=== PATIENT | male | born 1985 | race Caucasian/White ===

== ENCOUNTER 2016-06-06 14:30 | Emergency (ER) | payer MEDICARE ==
[~2016-06-06 14:30] MED LIST: NAPR375T3 PO
[2016-06-06 15:18] LABS: BASO % 1 % (0-3); EOS % 2 % (0-3); HEMATOCRIT 46.7 % (39.0-53.0); HEMOGLOBIN 15.9 g/dL (13.0-17.5); LYMPH # 1.2 x10^3/uL (1.0-4.8); LYMPH % 16 % (24-48); MEAN CORPUSCULAR HEMOGLOBIN 30 pg (25-35); MEAN CORPUSCULAR HGB CONC 34 g/dL (31-37); MEAN CORPUSCULAR VOLUME 89 fL (79-100); MONO % 6 % (0-9); NEUT % 76 % (31-73); PLATELET COUNT 194 x10^3/uL (140-400); RED BLOOD COUNT 5.25 x10^6/uL (4.30-5.70); RED CELL DISTRIBUTION WIDTH 14.6 % (11.5-14.5); WHITE BLOOD COUNT 7.8 x10^3/uL (4.0-11.0)
[2016-06-06 15:31] LABS: CALCIUM 9.6 mg/dL (8.5-10.1); CREATININE 1.1 mg/dL (0.7-1.3); GFR 78.1; POTASSIUM 3.7 mmol/L (3.5-5.1)
[2016-06-06 15:36] LABS: ALBUMIN 4.4 g/dL (3.4-5.0); ALBUMIN/GLOBULIN RATIO 1.2 (1.0-1.7); TOTAL BILIRUBIN 0.5 mg/dL (0.2-1.0)
--- NOTE | 2016-06-06 15:49 | PHYS DOC ---
Past Medical History Past Medical History: No Pertinent History Past Surgical History: Tonsillectomy Alcohol Use: None Drug Use: None Adult General Chief Complaint Chief Complaint: ABDOMINAL PAIN HPI HPI Patient is a 30 year old male who comes to the ED complaining of upper abdominal pain, epigastric and right upper quadrant, that has bothered him intermittently for 4 days since Saturday, and has been getting a little bit worse each day. Today he had a couple of episodes where he felt lightheaded and he felt like he might pass out. He has been drinking Sprite today, he feels that if he eats anything it might make his pain worse. He's had some nausea, no vomiting, no diarrhea or constipation. He felt a little bloated, feels like he needs to burp. He's never had this before. He is in good general health. He's had no blood in his stools, no black tarry stools. He has not had abdominal surgery. PCP none Review of Systems Review of Systems Constitutional: Denies fever or chills [] Eyes: Denies change in visual acuity, redness, or eye pain [] HENT: Denies nasal congestion or sore throat [] Respiratory: Denies cough or shortness of breath [] Cardiovascular: Denies chest pain GI: As in history of present illness : Denies dysuria or hematuria [] Musculoskeletal: Denies back pain or joint pain [] Integument: Denies rash or skin lesions [] Neurologic: Denies headache, focal weakness or sensory changes [] Allergies Allergies Allergies Coded Allergies Type Severity Reaction Last Updated Verified fentanyl Allergy Severe STOP BREATHING 06/06/16 Yes Physical Exam Physical Exam Constitutional: Well developed, well nourished, no acute distress, non-toxic appearance. Alert, mentating normally, no acute distress, drinking Sprite out of a bottle. HENT: Normocephalic, atraumatic, bilateral external ears normal, nose normal. [ ] Eyes: conjunctiva normal, no discharge. [] Neck: Normal range of motion, no stridor. [] Cardiovascular:Heart rate regular rhythm, no murmur [] Lungs & Thorax: Bilateral breath sounds clear to auscultation [] Abdomen: Bowel sounds normal, soft, nondistended, no masses, no pulsatile masses. Mild tenderness to palpation in the epigastrium, no significant right upper quadrant tenderness, no Tamez's, no rebound or guarding. Skin: Warm, dry, no erythema, no rash. [] Extremities: No tenderness, no cyanosis, no clubbing, ROM intact, no edema. [] Neurologic: Alert and oriented X 3, normal motor function, normal sensory function, no focal deficits noted. [] ] Current Patient Data Vital Signs Vital Signs Date Time Temp Pulse Resp B/P Pulse Ox O2 Delivery O2 Flow Rate FiO2 06/06/16 16:00 68 21 123/69 95 Room Air 06/06/16 14:32 98.1 98.1 Lab Values Laboratory Tests Test 06/06/16 15:05 White Blood Count 7.8x10^3/uL (4.0-11.0) Red Blood Count 5.25x10^6/uL (4.30-5.70) Hemoglobin 15.9g/dL (13.0-17.5) Hematocrit 46.7% (39.0-53.0) Mean Corpuscular Volume 89fL (79-100) Mean Corpuscular Hemoglobin 30pg (25-35) Mean Corpuscular Hemoglobin Concent 34g/dL (31-37) Red Cell Distribution Width 14.6% (11.5-14.5) H Platelet Count 194x10^3/uL (140-400) Neutrophils (%) (Auto) 76% (31-73) H Lymphocytes (%) (Auto) 16% (24-48) L Monocytes (%) (Auto) 6% (0-9) Eosinophils (%) (Auto) 2% (0-3) Basophils (%) (Auto) 1% (0-3) Neutrophils # (Auto) 5.9x10^3uL (1.8-7.7) Lymphocytes # (Auto) 1.2x10^3/uL (1.0-4.8) Monocytes # (Auto) 0.5x10^3/uL (0.0-1.1) Eosinophils # (Auto) 0.1x10^3/uL (0.0-0.7) Basophils # (Auto) 0.0x10^3/uL (0.0-0.2) Sodium Level 142mmol/L (136-145) Potassium Level 3.7mmol/L (3.5-5.1) Chloride Level 104mmol/L (98-107) Carbon Dioxide Level 28mmol/L (21-32) Anion Gap 10 (6-14) Blood Urea Nitrogen 14mg/dL (8-26) Creatinine 1.1mg/dL (0.7-1.3) Estimated GFR (Cockcroft-Gault) 78.1 BUN/Creatinine Ratio 13 (6-20) Glucose Level 139mg/dL (70-99) H Calcium Level 9.6mg/dL (8.5-10.1) Total Bilirubin 0.5mg/dL (0.2-1.0) Aspartate Amino Transferase (AST) 20U/L (15-37) Alanine Aminotransferase (ALT) 33U/L (16-63) Alkaline Phosphatase 91U/L (46-116) Total Protein 8.0g/dL (6.4-8.2) Albumin 4.4g/dL (3.4-5.0) Albumin/Globulin Ratio 1.2 (1.0-1.7) Lipase 86U/L (73-393) Laboratory Tests 06/06/16 15:05 Laboratory Tests 06/06/16 15:05 EKG EKG [] Radiology/Procedures Radiology/Procedures [] Course & Med Decision Making Course & Med Decision Making Pertinent Labs and Imaging studies reviewed. (See chart for details) 30-year-old healthy male ambulatory into the emergency department with a 4 day history of intermittent upper abdominal pain. I discussed with the patient getting some labs and he is agreeable to that plan. Labs, including lipase, unremarkable. The patient rested comfortably in the ED and watch TV. He drinks Sprite while here. I discussed with the patient that we have ruled out some of the causes of upper abdominal pain and I don't believe further testing in the ED is indicated at this time. I'd like to try a week or 2 of an [id number] proton pump inhibitor to see if that will help his symptoms. If not, he should follow up with a PCP and may need GI referral, may need endoscopy. I discussed all of this with the patient who understands. [] Dragon Disclaimer Dragon Disclaimer This electronic medical record was generated, in whole or in part, using a voice recognition dictation system. Departure Departure Impression: Primary Impression: Abdominal pain, epigastric Disposition: HOME, SELF-CARE Condition: STABLE Referrals: NO PCP (PCP) Patient Instructions: Diet for Gastroesophageal Reflux Disease, Adult, Easy-to- Read Additional Instructions: Labs were normal today including blood count, liver and kidney functions, and pancreas. I think we should try treating for excess stomach acid for a week or 2 and see if that helps. Follow diet on instructions for excess stomach acid. Purchase an [id number] stomach acid medication such as Nexium or Prilosec and take as directed for 1-2 weeks. If your symptoms go away and don't come back , you can quit taking it and not worry anymore about it. If your symptoms don't go away, or if they come back, you should see a doctor and you may need referral to a GI specialist. HE VÁZQUEZ MD Jun 06, 2016 15:49
[2016-06-06 16:00] VITALS: BP 123/69
== END 2016-06-06 16:12 | disposition home or self-care (01) ==
LOC: ER 14:30
DX: R10.13 Epigastric pain (principal); Z88.8 Allergy status to other drugs, medicaments and biological substances
CPT/HCPCS: 36415; 80053; 83690; 85027; 99284